=== PATIENT | male | born 1980 | race Caucasian/White ===

== ENCOUNTER 2023-04-11 08:11 | Emergency (ER) | payer OTHER, SELFPAY ==
--- NOTE | ~2023-04-11 | XR_ITS ---
EXAMINATION: XR foot RT min 3V DATE: 04/11/2023 08:31 INDICATION: Right midfoot pain post blunt trauma injury TECHNIQUE: Dorsoplantar, two oblique and lateral views of the right foot were obtained. COMPARISON: None. FINDINGS: Chopart joint injury with fracture at the distal dorsolateral aspect of the medial cuneiform with rogelio roximately 1.5 cm plantar/medial displacement, approaching dislocation, of the majority of the medial cuneiform relative to both the base of the first metatarsal and the smaller fragment which appears t o remain in relatively normal alignment relative to the first metatarsal. There appears to be similar plantar/radial displacement of the majority of the middle cuneiform as well as demonstration indisti nct distal cortical margin suggesting an additional fracture. No subluxation at the naviculocuneiform articulation although the medial and mid cuneiforms and to lesser degree the navicula are angulated as with plantar flexion relative to the axis of the proximal calcaneus and more distal metatarsals. T he third-fifth tarsal metatarsal joints. Remain in normal alignment. No other fractures identified. N ormal variant type II os naviculare. Remaining joint spaces appear normal. IMPRESSION: 1. Chopart joint injury with fracture subluxation bordering on dislocation at the first and second ta rsal metatarsal joints. Reviewed, dictated and finalized at location A. IMPRESSION: 1. Chopart joint injury with fracture subluxation bordering on dislocation at t he first and second tarsal metatarsal joints.
[2023-04-11 08:11] VITALS: BP 180/98; PULSE 76; RESP 18; TEMP 36.3; O2SAT 100
[2023-04-11 08:21] VITALS: BP 180/98; PULSE 75; RESP 20; O2SAT 100
[2023-04-11] MEDS: KETOROLAC (*BKC) 60 MG/2 ML VIAL IM (09:01)
--- NOTE | 2023-04-11 09:06 | ED.LOWEXIN ---
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 The patient has a pain level about a 6/10, and has a brisk pedal pulse on the right with currently no numbness or tingling, with no other injuries. no open fracture no evidence of compartment syndrome, spoke to Orthopedics at the [facility] to a Dr. Swift which suggested splint and call the office for follow-up. MD complaint: foot injury Onset (ago): hour(s) Injury: Right: foot ( tender with palpation) Type of Injury: blunt Exacerbating factors: weight bearing, movement and palpation Context: direct blow Related Data Allergies Allergy/AdvReac Type Severity Reaction Status Date / Time No Known Allergies Allergy Verified 04/11/23 09:18 Review of Systems Review of Systems: All systems reviewed & are unremarkable except as noted in HPI and below PMFSH Past Medical History Medical History Patient denies medical problems Exam Const: General: healthy appearing Nutritional Appearance: well nourished Orientation/consciousness: patient oriented x3 Limitations: no limitations Neck: Neck: normal visual inspection Chest: Chest palpation & inspection: normal inspection of the chest Resp: Effort & Inspection: normal respiratory effort Auscultation: clear to auscultation bilaterally Cardio: Rate: regular rate Rhythm: regular rhythm GI: GI Palp: Yes Soft to palpation Skin: General skin exam: normal color Rashes: no rashes Neuro: General: patient oriented x3, moves all extremities and no meningeal signs Extrem: Other: tenderness anterior right foot with a brisk pedal pulse on the right appears swollen Psych: Mental Status: mental status grossly normal Affect: normal affect Course Course Emergency Course: patient received 60mg IM Toradol and x-ray performed and reviewed shows that he has Chopartinjury with fracture. consulted with Orthopedics Vital Signs Vital signs: Vital Signs Temperature 36.3 C L 04/11/23 08:11 Pulse Rate 76 04/11/23 08:11 Respiratory Rate 18 04/11/23 08:11 Blood Pressure 180/98 H 04/11/23 08:11 Pulse Oximetry 100 04/11/23 08:11 Oxygen Delivery Room Air 04/11/23 08:11 Temperature 36.3 C L 04/11/23 08:11 Pulse Rate 75 04/11/23 08:21 Respiratory Rate 20 04/11/23 08:21 Blood Pressure 180/98 H 04/11/23 08:21 Pulse Oximetry 100 04/11/23 08:21 Oxygen Delivery Room Air 04/11/23 08:21 Critical Care Time Critical Care Time Critical Care Time: No Discharge Plan Discharge Clinical Impression: Foot fracture, right Patient Disposition: Home, Self-Care Condition: Stable Instructions: Antibiotic Form, Foot Fracture in Adults (ED) Additional Instructions: Advised take medicine as prescribed and to call Orthopedic Clinic in [facility] to make an appointment for further evaluation. Prescriptions: New oxycodone-acetaminophen [Percocet] 5-325 mg tablet 1 tablet PO Q6H PRN (Reason: pain) Qty: 20 0RF Follow-up/Referrals: UNKNOWN,DOCTOR [Primary Care Provider] - Time of Disposition: 09:52
[2023-04-11] MEDS: MORPHINE SULFATE (*CRX) 4 MG/ML INJ IM (09:32)
--- NOTE | 2023-04-11 10:05 | PC.NURSE ---
OCL applied to right lower extremity, CMS intact. Education provided to patient.
[2023-04-11 10:19] VITALS: BP 143/82; PULSE 68; RESP 20; O2SAT 96
[2023-04-11 10:40] VITALS: RESP 20
== END 2023-04-11 10:39 | disposition home or self-care (01) ==
PROVIDERS: Emergency Provider Emergency Medicine
DX: S92.311A Displaced fracture of first metatarsal bone, right foot, initial encounter for closed fracture (principal); S92.321A Displaced fracture of second metatarsal bone, right foot, initial encounter for closed fracture; W24.0XXA Contact with lifting devices, not elsewhere classified, initial encounter; Y99.0 Civilian activity done for income or pay
CPT/HCPCS: 29515; 73630; 96372; 99284; J1885; J2270

== ENCOUNTER 2023-04-14 13:51 | Emergency (ER) | payer SELFPAY ==
[2023-04-14 13:52] VITALS: BP 144/86; PULSE 101; RESP 20; TEMP 36.8; O2SAT 100
--- NOTE | 2023-04-14 14:35 | ED.LOWEXIN ---
HPI - Extremity Injury (Lower) General Chief Complaint: Extremity Injury, Lower Stated Complaint: R FOOT INJURY Time Seen by Provider: 04/14/23 13:54 Source: patient Mode of arrival: ambulatory Limitations: no limitations History of Present Illness HPI Narrative: patient is a 42-year-old male with a right foot fracture known. Patient has already been seen in the ER and further seen an orthopedic surgeon. There was plans to have surgery this week but he does not like the doctor. A new doctor information will be given today for another evaluation per the patient request. Also the boot fitting was not feeling correct to the patient so we will change his boot today as well for better fitting. Patient is out of his pain medicine a Percocet and we will discuss that further down the visit. MD complaint: foot injury (right) Onset (ago): day(s) (4) Injury: Right: foot Type of Injury: blunt Place: work Severity: moderate Severity scale (1-10): 8 Relieving factors: immobilization and other ( Percocet) Exacerbating factors: weight bearing, movement and palpation Context: direct blow Associated symptoms: snap/pop sensation, swelling and unable to bear weight ( patient currently using a boot and crutches) Other symptoms: none Treatments prior to arrival: cold therapy Related Data Allergies Allergy/AdvReac Type Severity Reaction Status Date / Time No Known Allergies Allergy Verified 04/11/23 09:18 Review of Systems Review of Systems: All systems reviewed & are unremarkable except as noted in HPI and below Constitutional: Constitutional: Reports no additional constitutional complaints Eyes: Eyes: Reports no additional eye complaints ENT: Reports system reviewed and no additional complaints, except as documented Cardiovascular: Cardiovascular: Reports no additional cardiovascular complaints Respiratory: Respiratory: Reports no additional respiratory complaints Gastrointestinal: Gastrointestinal: Reports no additional gastrointestinal complaints Genitourinary: Genitourinary: Reports no additional male genitourinary complaints Musculoskeletal: Musculoskeletal: Reports no additional musculoskeletal complaints Integumentary/Breasts: Skin/Breast: Reports system reviewed and no additional complaints, except as docu Neurologic: Reports system reviewed and no additional complaints, except as documented Psychiatric: Psychiatric: Reports no additional psychiatric complaints Endocrine: Endocrine: Reports no additional endocrine complaints Hematologic/Lymphatic: Hematologic/Lymphatic: Reports no additional hematologic/lymphatic complaints Allergic/Immunologic: Allergic/Immunologic: Reports no additional allergic/immunologic complaints [facility] Past Medical History Medical History (Updated 04/14/23 @ 14:46 by Sahil Oshea MD) Foot fracture Patient denies medical problems Exam Const: General: healthy appearing, no acute distress and alert Resp: Effort & Inspection: normal respiratory effort Auscultation: clear to auscultation bilaterally Cardio: Rate: regular rate Rhythm: regular rhythm Heart sounds: no murmurs GI: Inspection: non-distended GI Palp: Yes Soft to palpation, No Tenderness to palpation present (GI) and No Guarding due to palpation present (GI) Auscultation: normal bowel sounds Skin: General skin exam: normal color Rashes: no rashes Wounds: no wounds Neuro: General: patient oriented x3 Cranial nerves: Yes Nystagmus not present Speech: normal speech Extrem: General: abnormal to inspection, no clubbing, cyanosis or edema and no pedal edema Other: right foot has some tenderness at the site of fracture with slight swelling and bruising all expected findings Psych: Mental Status: mental status grossly normal Affect: normal affect Attitude: cooperative Course Vital Signs Vital signs: Vital Signs Temperature 36.8 C 04/14/23 13:52 Pulse Rate 101 H 04/14/23 13:52 Respiratory Rate
[2023-04-14 14:54] VITALS: BP 136/89; PULSE 78; RESP 20; TEMP 36.6; O2SAT 98
== END 2023-04-14 15:04 | disposition home or self-care (01) ==
PROVIDERS: Emergency Provider Emergency Medicine; PCP Nurse Practitioner Family
DX: S92.901D Unspecified fracture of right foot, subsequent encounter for fracture with routine healing (principal); X58.XXXD Exposure to other specified factors, subsequent encounter
CPT/HCPCS: 99283; L2112

== ENCOUNTER 2023-04-25 01:04 | Day surgery (SDC) | payer OTHER, SELFPAY ==
[2023-04-23 09:45] VITALS: BMI 27.4
--- NOTE | 2023-04-23 10:01 | PC.NURSE ---
Report to the Outpatient Waiting Room, entrance under the green pavilion located off [facility] [facility], at time ___1000____ on date __[id number]____. Planned Procedure Time: 1200___. Time changes happen often and if your time is changed the preop area will call you the afternoon before. - You and your visitor will be asked to self-screen and do not enter if you have any COVID symptoms. - A mask is optional within the hospital at this time. Patients may have clear liquids (water, carbonated beverages, clear teas, apple juice) until 3 hours prior to surgery with a maximum of 20 ounces. - No food from midnight until time of surgery Take the following medications with a SIP of water the morning of surgery: pain pill if needed DO NOT STOP ANY OF YOUR OTHER PRESCRIPTION MEDICATIONS PRIOR TO SURGERY ?EXCEPT THE FOLLOWING Medications to discontinue per physician n/a Date to take last dose Please no make-up, nail spanish, hairspray, perfume, deodorant, or body powder the day of surgery. No jewelry (including any body piercings) or valuables the day of surgery, leave them at home. Please take a shower or bath the night before, or the morning of, surgery with an antibacterial soap. Wear comfortable, loose fitting clothing. - Jewelry must be removed prior to entering the operating room. Rings and piercings that are not removed may be cut off. - The hospital will not accept responsibility for valuables. - Please leave all valuables, including medications, at home the day of surgery. If you are going home after surgery, a licensed parcel post truck driver must drive you home. - NO public transportation without another adult if you receive anesthesia. - We recommend that an adult stay with you for 24 hours following discharge. - We also recommend that you do not drive, make important decision, drink alcoholic beverages, or take any drugs that were not prescribed by your health care provider for at least 24 hours after your discharge time. Follow any additional instructions given to you from your surgeon. If you or anyone in your household have experienced Covid symptoms in the past week, please notify your surgeon or the nurse liaison at the phone number below for possible testing. Telephone instructions given to ___patient: Maynor and asked if any additional questions and then verbalized understanding. Patient advised to call surgeon office or pre surgery nurse liaison [phone] if any additional questions.
[2023-04-25] VITALS (10 sets, daily range): BP systolic 99–139; BP diastolic 56–85; PULSE 64–94; RESP 10–16; TEMP 36–36.5; O2SAT 94–100
--- NOTE | ~2023-04-25 | XR_ITS ---
XR surgery orthopedic Clinical history: ORIF right foot TECHNIQUE: Fluoroscopy used during ORIF right foot with fusion of the midfoot and base of the first and second metatarsals. performed by [Kristopher Desai MD] on 04/25/2023. 1 minutes 30 seconds wi th 3 images captured. FINDINGS: Correlate with procedure note. IMPRESSION: Fluoroscopy used during ORIF right foot with fusion of the midfoot and base of the first and second metatarsals. Reviewed, dictated and finalized at location B.
--- NOTE | 2023-04-25 09:48 | ECG_ITS ---
Measurements Intervals [place] Rate: 67 P: 59 DC: 169 QRS: -53 QRSD: 114 T: 11 QT: 415 QTc: 438 Interpretive Statements SINUS RHYTHM INCOMPLETE RIGHT BUNDLE BRANCH BLOCK LEFT ANTERIOR FASCICULAR BLOCK ST ELEVATION IN DIFFUSE LEADS CONSISTENT WITH INJURY, PERICARDITIS, OR EARLY REPOLARIZATION BASELINE ARTIFACT- V5-V6 ABNORMAL ECG NO PREVIOUS ECG AVAILABLE FOR COMPARISON Electronically Signed On 04-25-2023 11:49:02 CDT by Jef Bro D.O.
[2023-04-25] MEDS: KETOROLAC 15 MG/ML VIAL (*BKC) IV PUSH (10:45)
[2023-04-25 10:53] LABS: Anion Gap 6 mmol/L (8-16); Blood Urea Nitrogen 19 mg/dL (9-20); Calcium 8.7 mg/dL (8.4-10.2); Carbon Dioxide 26 mmol/L (22-30); Chloride 104 mmol/L (98-107); Estimated CRCL calculation 112 ml/min; Estimated Glomerular Filt Rate > 60; Glucose 196 mg/dL (65-110); Potassium 4.3 mmol/L (3.4-5.0); Sodium 136 mmol/L (137-145)
--- NOTE | 2023-04-25 11:00 | WPDANESEPPF ---
Anes - Initial Pre Proc Eval Procedure: Operation Date: 04/25/23 12:00 Proposed Procedures p Open Reduction Internal Fixation Right Foot Fractures - Kristopher Desai MD Date/Time: 04/25/23 11:00 Surgeon: Kristopher Desai MD Pre Op Diagnosis: right foot karley hernández Patient Data Age: 42 Gender: M Height: 1.71 m Weight: 76.3 kg Last Vital Signs Temp 36.0 C L 04/25/23 10:25 Pulse 64 04/25/23 10:25 Resp 16 04/25/23 10:25 BP 111/68 04/25/23 10:25 Pulse Ox 99 04/25/23 10:25 O2 Del Method Room Air 04/25/23 10:25 Allergies Allergy/AdvReac Type Severity Reaction Status Date / Time No Known Allergies Allergy Verified 04/25/23 10:15 Home Medications Medication Instructions Recorded Confirmed Type dapagliflozin propanediol 10 mg 10 mg PO DAILY 04/23/23 04/24/23 History tablet (Farxiga) ibuprofen 800 mg tablet 800 mg PO Q8H PRN pain #60 tabs 04/24/23 04/24/23 Rx ondansetron 8 mg disintegrating 8 mg PO Q6-8H PRN nausea and 04/24/23 04/24/23 Rx tablet vomiting #10 tabs oxycodone-acetaminophen 7.5 mg-325 1 tablet PO Q6H PRN pain #30 tabs 04/24/23 04/25/23 Rx mg tablet (Percocet) polyethylene glycol 3350 17 17 g PO DAILY PRN constipation 04/24/23 04/24/23 Rx gram/dose oral powder #238 grams sennosides 8.6 mg-docusate sodium 1 tab-cap PO BID #30 tabs 04/24/23 04/24/23 Rx 50 mg tablet Laboratory Tests 04/25/23 10:37 Sodium 136 L mmol/L (137-145) Potassium 4.3 mmol/L (3.4-5.0) Chloride 104 mmol/L (98-107) Carbon Dioxide 26 mmol/L (22-30) Anion Gap 6 L mmol/L (8-16) BUN 19 mg/dL (9-20) Creatinine 0.70 mg/dL (0.7-1.3) Estim Creat Clear Calc 112 ml/min Estimated GFR > 60 (59 - ) Glucose 196 H mg/dL (65-110) Calcium 8.7 mg/dL (8.4-10.2) Patient hx anesthesia problems: none Family hx anesthesia problems: none Results Review: All pre-operative results and documents have been reviewed as part of the pre-operative evaluation. [facility] Past Medical History Medical History Dislocation of foot, right, closed Foot fracture Lisfranc fracture Patient denies medical problems Social History Social History Smoking status: Never smoker Alcohol intake: current Drinks per week: 4 Alcohol use details: sporadic, but I drink 6-7 when I drink Substance use: current Substance use type: marijuana Living arrangements: with family Spiritual care concerns: No Anes - Eval Final PreProcedure Day of Procedure 04/25/23 11:00 Patient weight: overweight Heart: regular rate and rhythm Lungs: clear to auscultation Airway: Mallampati scale class II Neurological: alert and oriented Last oral intake: >/= 8 hours ASA classification: III Emergent: no Anesthetic plan: proceed Anesthesia type and monitoring: general LMA and standard monitoring Results Review: All pre-operative results and documents have been reviewed as part of the pre-operative evaluation. Informed Consent: The patient's anesthetic plan and its attendant risks and benefits were discussed with the patient/family/POA. Questions were solicited and answers provided to the satisfaction of the patient/family/POA.
--- NOTE | 2023-04-25 12:00 | WPDHPUPDATE1 ---
History and Physical Update Update Date/Time: 04/25/23 12:00 History and Physical has been reviewed, including an updated exam of the patient. There are NO changes in the patient's condition. Risks, benefits, and alternatives have been discussed and questions answered. Patient agrees to proceed with procedure.
[2023-04-25] MEDS: ceFAZolin 2 GM/D5W 50 ML 2 GM/50 ML BAG IVPB (12:05)
[2023-04-25] MEDS: BUPivacaine HCL 0.5% PF 30 ML VIAL 10 ML INFILTRATE (12:37)
[2023-04-25] MEDS: LACTATED RINGERS 1,000 ML 30 ML IV CONT ×2 (14:24)
--- NOTE | 2023-04-25 14:28 | W.PM.PROC2 ---
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 Fracture dislocation of the Lisfranc joint. Presents for operative treatment. Description of Procedure Patient identified in the preoperative holding. Informed consent given. Operative extremity marked. Patient received intravenous antibiotics. Patient brought to the operating room where underwent general anesthetic by anesthesia team. Positioned supine on operating room table. Time-out performed confirming the patient, site of the surgery and the plan. Right foot prepped draped sterile surgical fashion using DuraPrep skin solution. Foot and Ankle exsanguinated and thigh tourniquet inflated to 250 mmHg. Local anesthetic with 0.5% Marcaine plain. Dorsal longitudinal incision made over the dorsum the 1st intermetatarsal space inter cuneiform space. Hemostasis controlled electrocautery. The neurovascular bundle as well as tendons were identified and protected. Dorsal capsulotomy performed 1st metatarsal medial cuneiform joint. Complete dislocation of cuneiform as well as fracture was noted. Portion of the articular surface from the metatarsal and the cuneiform was noted to have traumatically sheared off and was sitting free. Due to this primary arthrodesis was indicated. Wrist the articular surface was removed osteotome and rongeur. Articular surface and subchondral bone was feathered. The neurovascular bundle was then protected and a dorsal capsulotomy was performed 2nd metatarsal cuneiform joint. Similarly joint was prepared by removing articular surface osteotome and rongeur and feather in the surfaces. The Lisfranc complex was then reduced. This was checked with image intensification. Fixation was then achieved with the cannulated screws placed in lag technique. Final stabilization performed with a dorsal 5 hole plate. Image intensification confirm final alignment placement of the hardware. Wounds were irrigated with saline and the fascia was then closed with 2-0 Vicryl interrupted suture. Subcutaneous tissue repaired with 3-0 Monocryl interrupted suture and skin repaired with 4-0 nylon running suture. Tourniquet released and good capillary refill noted in the toes. Sterile dressing applied. The patient was then woken from anesthesia, extubated and taken to the recovery room in stable condition. All sponge, needle, instrument counts were correct at the end of the case. Implants Arthrex 3.5 mm cannulated screw X 3, 5 hole plate with 3.5 mm cannulated screw x4 screws, 2.5 mm cannulated screw Estimated Blood Loss 20 Tourniquet Time 90 Drains No Packing No Pathology None sent Complications None Condition Stable Disposition PACU [facility] Billing Surgery - Charge Forward: Surgery Billing ([id number])
[2023-04-25 14:32] LABS: Glucose Point of Care 193 mg/dl (65-105)
[2023-04-25] MEDS: fentaNYL CITRATE INJ (*CRX) 100 MCG/2 ML VIAL 25 MCG IV PUSH ×8 (15:05→15:19)
[2023-04-25] MEDS: oxyCODONE HCL (*CRX) 5 MG TAB IR PO (16:27)
== END 2023-04-25 16:40 | disposition home or self-care (01) ==
PROVIDERS: Anesthesiology; PCP Family Medicine; Visit Provider Orthopaedic Surgery
PROC: (CPT 28485; principal; 2023-04-25 12:00)
DX: S93.324A Dislocation of tarsometatarsal joint of right foot, initial encounter (principal); W20.8XXA Other cause of strike by thrown, projected or falling object, initial encounter; Y92.9 Unspecified place or not applicable; Y99.0 Civilian activity done for income or pay; Z79.84 Long term (current) use of oral hypoglycemic drugs; F12.90 Cannabis use, unspecified, uncomplicated
CPT/HCPCS: 28465; 28615 ×2; 36415; 80048; 82948; 93005; 99199; A9270; J0690; J1100; J1170; J1885; J2250; J2405; J2704; J3010; J7120

== ENCOUNTER 2023-07-15 09:16 | Outpatient (CLI) | payer OTHER, SELFPAY ==
--- NOTE | ~2023-07-15 | XR_ITS ---
Right foot Technique: AP, oblique, and lateral views were obtained. Clinical History: Postoperative COMPARISON: 06/12/2023 Findings: There is extensive orthopedic hardware involving the first and second tarsometatarsal joint s and the Lisfranc ligament region. Osseous and orthopedic hardware alignment is stable, with probabl e mild progressive fusion across the second TMT joint. No hardware complication is evident. There is dorsal soft tissue swelling of the forefoot.. Impression: Osseous and orthopedic hardware alignment is unchanged with fusion at the first and second tarsometat arsal joints, as detailed above. Increased dorsal soft tissue swelling the foot, nonspecific. Correlate clinically. Reviewed, dictated and finalized at location M. 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 Increased dorsal soft tissue swelling the foot, nonspecific. Correlate clinical ly.
== END 2023-07-15 09:17 | disposition home or self-care (01) ==
LOC: CHSIMG 09:17
PROVIDERS: PCP Family Medicine; Visit Provider Orthopaedic Surgery
DX: M79.671 Pain in right foot (principal); M79.89 Other specified soft tissue disorders
CPT/HCPCS: 73630

== ENCOUNTER 2023-10-21 09:31 | Outpatient (CLI) | payer OTHER, SELFPAY ==
--- NOTE | ~2023-10-21 | XR_ITS ---
EXAMINATION: XR foot RT min 3V DATE: 10/21/2023 09:56 INDICATION: Right foot pain. TECHNIQUE: 3 views of right foot were obtained. COMPARISON: Right foot radiographs 07/15/2023 FINDINGS: There is lateral subluxation of second metatarsal with respect to intermediate cuneiform. T here are changes of fusion procedure involving the first and second metatarsals and medial and interm ediate cuneiforms with multiple screws. There is a dorsal plate at first tarsometatarsal joint. No ac juan fracture. There is mild osteoarthritis of first metatarsophalangeal joint and some of the interph alangeal and midfoot joints. IMPRESSION: 1. Fusion procedure involving the first and second metatarsals and medial and intermediate cuneiforms . 2. Mild polyarticular osteoarthritis. Reviewed, dictated and finalized at location A. IMPRESSION: 1. Fusion procedure involving the first and second metatarsals and medial and i ntermediate cuneiforms. 2. Mild polyarticular osteoarthritis.
== END 2023-10-21 09:32 | disposition home or self-care (01) ==
LOC: CHSIMG 09:33
PROVIDERS: PCP Family Medicine; Visit Provider Orthopaedic Surgery
DX: M79.671 Pain in right foot (principal); Z98.890 Other specified postprocedural states; M19.071 Primary osteoarthritis, right ankle and foot
CPT/HCPCS: 73630

== ENCOUNTER 2024-03-23 07:29 | Outpatient (CLI) | payer OTHER, SELFPAY ==
--- NOTE | ~2024-03-23 | XR_ITS ---
XR foot RT min 3V Ordering provider: Kristopher Desai MD History: . MID FOOT PAIN CHORNIC S/P SURGERY . Comparison: October 21, 2023 FINDINGS: BONES: Small bony fragment seen on the plantar aspect of the foot as seen in the lateral view which w as not seen in the previous study. Postoperative changes in the area of the first and second tarsomet atarsal joints. JOINT SPACES: Osteoarthritic changes seen on the dorsum of the fourth in the area of the tarsometatar clifford joints as seen in the lateral view.. No tarsal coalition. SOFT TISSUES: Normal. IMPRESSION: Small bony fragment seen in the plantar aspect of the foot most likely adjacent to the cuboid bone an d suggestive of acute/subacute fracture. Clinical correlation for tenderness in the area advised.. Reviewed, dictated and finalized at location A. IMPRESSION: Small bony fragment seen in the plantar aspect of the foot most likely adjacent to the cuboid bone and suggestive of acute/subacute fracture. Clinical correla tion for tenderness in the area advised..
== END 2024-03-23 07:30 | disposition home or self-care (01) ==
LOC: CHSIMG 07:30
PROVIDERS: PCP Family Medicine; Visit Provider Orthopaedic Surgery
DX: M79.671 Pain in right foot (principal); R93.7 Abnormal findings on diagnostic imaging of other parts of musculoskeletal system
CPT/HCPCS: 73630

== ENCOUNTER 2024-10-14 09:23 | Outpatient (CLI) | payer MEDICAID, SELFPAY ==
[2024-10-14 09:50] LABS: Basophils Absolute Auto 0.03 K/mm3 (0.00-0.10); Basophils Percent Auto 0.4 % (0.0-1.0); Eosinophils Percent Auto 1.4 % (1.0-6.0); Hematocrit 42.8 % (40.0-54.0); Hemoglobin 14.9 g/dL (14.0-18.0); Immature Granulocyte Absolute 0.02 K/mm3 (0.00-0.00); Immature Granulocyte Percent A 0.3 % (0.0-0.0); Lymphocytes Absolute Auto 1.31 K/mm3 (1.10-4.50); Lymphocytes Percent Auto 17.9 % (18.0-42.0); Mean Corpuscular HGB Conc 34.8 g/dL (32-36); Mean Corpuscular Volume 83.4 fL (78.0-102.0); Mean Platelet Volume 10.9 fl (8.7-11.0); Monocytes Absolute Auto 0.73 K/mm3 (0.10-0.90); Neutrophils Absolute Auto 5.12 K/mm3 (1.70-7.20); Platelet Count Result 183 K/mm3 (150-420); Red Blood Count 5.13 M/mm3 (4.70-6.10); Red Cell Distribution Width 12.5 % (11.6-14.4); White Blood Count 7.3 K/mm3 (4.8-10.8)
--- OUTSIDE RECORDS SUMMARY | 2024-10-14 10:08 | XMS_ITS | Encounter Summary ---
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
--- OUTSIDE RECORDS SUMMARY | 2024-10-14 10:08 | XMS_ITS | Clinical Summary ---
Author Organization [facility] Address [facility] [place] [address] Care Team Providers Care Business Reporter Name Role Phone None, Provider MD Primary Care Provider Unavaila ble Allergies No known active allergies Medications No known medications Active Problems Problem Noted Date Diagnosed Date Foot fracture, right, with r outine healing, subsequent encounter 08/08/2023 Family History Medical History Relation Comments Cancer Father Heart Disease Mother Osteoarthritis Mother Relation Status Comments Father Alive Mother Alive Social History Tobacco Use Types Packs/Day Years Used Date Smoking Tobacco: Never Smokeless Tobacco: Never Tobacco Cessation:Counseling Given: Not Answered Alcohol Use Standard Drinks/Week Comments Yes 0 (1 standard drink = 0.6 oz pur e alcohol) occasional Sex and Gender Information Value Date Recorded Sex Assigned at Not on file 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 Gender Identity Not on file Sexual Orientation Not on file Last Filed Vital Signs Vital Sign Reading Time Taken Comments Blood Pressure 135/93 12/19/2022 8:24 PM CDT Pulse 119 12/19/2022 8:24 PM CDT Temperature 35.1 C (95.2 F) 12/19/2022 8:24 PM CDT Respiratory Rate 16 12/19/2022 8:24 PM CDT Oxygen Saturation 95% 12/19/2022 8:30 PM CDT Inhaled Oxygen Concentration - - Weight 83.9 kg (185 lb) 12/19/2022 8:24 PM CDT Height 170.2 cm (5' 7 ) 12/19/2022 8:24 PM CDT Body Mass Index 28.98 12/19/2022 8:24 PM CDT Plan of Treatment Health Maintenance Due Date Last Done Comments Annual Physical 12/27/1982 Hepatitis C 12/27/1997 DTaP, Tdap and Td Vaccines ( 1 - Tdap) 12/27/1998 Hepatitis B Vaccines (1 of 3 - 19+ 3-dose series) 12/27/1998 COVID-19 Vaccine ( - 2023-2 5 season) 2024 Influenza Adult (#1) 2024 HPV Vaccines Aged Out No longer eligi ble based on patient's age to complete this topic Meningococcal B Vaccine Aged Out No l onger eligible based on patient's age to complete this topic Meningococcal Vaccine Aged Out No pk gali eligible based on patient's age to complete this topic Pneumococcal Vaccine: Pediat rics (0 to 5 Years) and At-Risk Patients (6 to 64 Years) Aged Out No longer eligible b ased on patient's age to complete this topic RSV Immunizations Under 20 Months Aged Out No longer eligible based on patient's age to complete this topic Insurance MEDICAID [facility] Care Teams Business Reporter Relationship Specialty Start Date End Date None, Provider, PCP - General 04/07/21
[2024-10-14 10:11] LABS: Alanine Aminotransferase 104 U/L (16-63); Albumin Level 3.9 g/dL (3.4-5.0); Alkaline Phosphatase 158 U/L (46-116); Anion Gap 7 mmol/L (4-12); Aspartate Amino Transferase 29 U/L (15-37); Bilirubin,Total 0.4 mg/dL (0.00-1.00); Blood Urea Nitrogen 18 mg/dL (7-18); Calcium 9.7 mg/dL (8.5-10.1); Carbon Dioxide 29 mmol/L (21-32); Chloride 100 mmol/L (98-108); Cholesterol 333 mg/dL (0-200); Estimated Glomerular Filt Rate > 60; Glucose 344 mg/dL (70-99); HDL Direct 41 mg/dL (40-60); LDL Cholesterol Calculated 219 mg/dL (<130); Osmolality Calculated 297 mOsm/kg (285-295); Potassium 4.6 mmol/L (3.5-5.1); Sodium 136 mmol/L (136-145); Total Protein 7.2 g/dL (6.4-8.2); Triglycerides 363 mg/dL (0-150)
[2024-10-14 10:24] LABS: HIV 1 P24 AG Negative (Negative); HIV 1/2 AB Negative (Negative)
[2024-10-15 09:04] LABS: Hepatitis B Surface Antigen NON-REACTIVE (NON-REACTIVE)
[2024-10-15 11:59] LABS: Hepatitis A Antibody IgM NON-REACTIVE (NON-REACTIVE); Hepatitis B Core Antibody NON-REACTIVE (NON-REACTIVE); Hepatitis C Virus Antibody NON-REACTIVE (NON-REACTIVE)
== END 2024-10-14 09:24 | disposition home or self-care (01) ==
PROVIDERS: PCP Family Medicine; Visit Provider Family Medicine
DX: E11.42 Type 2 diabetes mellitus with diabetic polyneuropathy (principal); K62.5 Hemorrhage of anus and rectum; R74.01 Elevation of levels of liver transaminase levels
CPT/HCPCS: 36415; 80053; 80061; 80074; 84402; 84403; 85025; 87806

== ENCOUNTER 2025-04-26 07:32 | Outpatient (CLI) | payer OTHER, SELFPAY ==
--- NOTE | ~2025-04-26 | XR_ITS ---
X-rays right foot Indication: Pain, M 79.671 Comparison: 1 month prior Technique: 4 views right foot Findings/Impression: 1. Arthrodesis of medial and middle cuneiforms with first and second metatarsals. Lucency around screw within second metatarsal head as before. Hardware intact. 2. No definite acute findings or significant change. 3. Cortical irregularity along medial navicular as before. Reviewed, dictated and finalized at location R.
== END 2025-04-26 07:33 | disposition home or self-care (01) ==
LOC: CHSIMG 07:34
PROVIDERS: PCP Family Medicine; Visit Provider Family Medicine
DX: M79.671 Pain in right foot (principal); Z98.1 Arthrodesis status
CPT/HCPCS: 73630

== ENCOUNTER 2025-06-13 22:18 | Emergency (ER) | payer SELFPAY ==
--- OUTSIDE RECORDS SUMMARY | 1999-06-20 08:30 | XMS_ITS | Continuity of Care Document ---
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, [address], [place], [place], [id number], [place] tel:[phone], [facility] 2001 No Information [id number] No Information Family History Family Member Type Diagnosis Age At Onset No Information Payers Payer name Insurance type Covered constitution party ID Authoriza tijudson(s) Workers Compensation [id number] Social History Type Description Quantity Date Captured Comments Sex Male Smoking Status No Information Chief Complaint And Reason For Visit No Information Reason For Referral Reason For Referral No Information History Of Present Illness Encounter Date Complaint History Of Prese nt Illness No Information Functional Status Date Functional Assessmen t No Information Instructions Date Instruction Additional Infor mation No Information Assessments Type Assessment Date No Information Patient Care Teams Name Effective Dates (start - stop) Status Members No Information
[2025-06-13 22:23] VITALS: BP 156/88; PULSE 92; RESP 15; TEMP 36.8; O2SAT 95
--- NOTE | 2025-06-13 22:44 | ED_ITS ---
HPI - Animal Bite General Chief Complaint: Animal Bite Stated Complaint: Animal bite on Finger Time Seen by Provider: 06/13/25 22:44 Source: patient Mode of arrival: ambulatory Limitations: no limitations History of Present Illness HPI narrative: Patient is a 44-year-old male with a left hand pointer finger cat bite 2 days ago. The area is red and inflamed with some pus today so he came for evaluation at this time. Patient picked up his cat and was moving the animal when it turned around and bit him in the finger. The cat was upset about being lifted and turned around and bit him in the finger. The animal has shots up-to-date. The patient had a tetanus in the past few years. MD complaint: animal bite Onset (ago): day(s) (Two) Animal: cat Description of animal: household pet, immunizations UTD and appeared well Mechanism: bite and contact with mucous membranes Location - Extremities: Left: hand (Pointer finger) Pain description: sharp Severity scale (1-10): 4 Context: provoked and other (Patient was picking up the cat and it turned around and bit him in the finger) Associated symptoms: erythema, discharge from wound and rash Treatments prior to arrival: wound dressing(s) Related Data Patient tetanus UTD: Yes Allergies Allergy/AdvReac Type Severity Reaction Status Date / Time No Known Allergies Allergy Verified 06/13/25 22:23 Review of Systems Review of Systems: All systems reviewed & are unremarkable except as noted in HPI and below Constitutional: Constitutional: Reports no additional constitutional com plaints Eyes: Eyes: Reports no additional eye complaints ENT: Reports system reviewed and no additional complaints, except as documented Cardiovascular: Cardiovascular: Reports no additional cardiovascular complaints Respiratory: Respiratory: Reports no additional respiratory complaints Gastrointestinal: Gastrointestinal: Reports no additional gastrointestinal complaints Genitourinary: Genitourinary: Reports no additional male genitourinary complaints Musculoskeletal: Musculoskeletal: Reports no additional musculoskeletal complaints Integumentary/Breasts: Skin/Breast: Reports system reviewed and no additional complaints, except as docu Neurologic: Reports system reviewed and no additional complaints, except as documented Psychiatric: Psychiatric: Reports no additional psychiatric complaints Endocrine: Endocrine: Reports no additional endocrine complaints Hematologic/Lymphatic: Hematologic/Lymphatic: Reports no additional hematologic/lymphatic complaints Allergic/Immunologic: Allergic/Immunologic: Reports no additional allergic/immunologic complaints [facility] Past Medical History Medical History Hyperlipidemia Type II diabetes mellitus Encounter for postoperative care Dislocation of foot, right, closed Lisfranc fracture Foot fracture Patient denies medical problems Social History Social History Smoking status: Former smoker Alcohol intake: former Drinks per week: 4 Alcohol use details: sporadic, but I drink 6-7 when I drink Substance use: current Substance use type: marijuana Other substance usage details: daily Living arrangements: with family Spiritual care concerns: No Exam Const: General: healthy appearing Nutritional Appearance: well nourished Orientation/consciousness: patient oriented x3 HENMT: Head: normal to inspection Ears: external ears normal Face/Nose/Sinus: Normal external nose present Eyes: Conjunctivae: conjunctivae normal Pupils: Equal, round and reactive pupils present EOM: EOMs intact bilaterally Neck: Neck: normal visual inspection Chest: Chest palpation & inspection: normal inspection of the chest Resp: Effort & Inspection: normal respiratory effort, not labored, no retractions and not tachypneic Auscultation: clear to auscultation bilaterally, no crackles, no rales and no rhonchi Cardio: Rate: regular rate Rhythm: regular rhythm Heart sounds: no murmurs GI: Inspection: non-distended GI Palp: Yes Soft to palpation, No Tenderness to palpation present (GI) and No Guarding due to palpation present (GI) Auscultation: normal bowel sounds : General: Yes bladder normal to palpation Back/Spine/Pelvis: Back: no CVA tenderness Skin: General skin exam: normal color Rashes: no rashes Wounds: wound noted Other: Left hand pointer finger has a small area of infection and it has erythema with a small nidus opening and localized pus drainage Neuro: General: patient oriented x3, moves all extremities and no meningeal signs Cranial nerves: No Nystagmus not present Speech: No normal speech Gait exam (Neuro): gait abnormal Extrem: General: normal to inspection, no clubbing, cyanosis or edema and no pedal edema Psych: Mental Status: mental status grossly normal Affect: normal affect Attitude: cooperative Course Vital Signs Vital signs: Vital Signs Temperature 36.8 C 06/13/25 22:23 Pulse Rate 92 06/13/25 22:23 Respiratory Rate 15 06/13/25 22:23 Blood Pressure 156/88 H 06/13/25 22:23 Pulse Oximetry 95 06/13/25 22:23 Oxygen Delivery Room Air 06/13/25 22:23 Temperature 36.8 C 06/13/25 22:23 Pulse Rate 92 06/13/25 22:23 Respiratory Rate 15 06/13/25 22:23 Blood Pressure 156/88 H 06/13/25 22:23 Pulse Oximetry 95 06/13/25 22:23 Oxygen Delivery Room Air 06/13/25 22:23 MDM - Animal Bite MDM Narrative Medical decision making narrative: Patient is a 44-year-old male with a left hand pointer finger cat bite 2 days ago. Area is now red and swollen and painful. Augmentin times 10 days. Tetanus up-to-date. Off work. Imaging Data Attestation: I personally reviewed and interpreted this imaging study as follows: Discharge Plan Discharge Clinical Impression: Cat bite of finger Patient Disposition: Home Condition: Stable Instructions: Antibiotic Form, Animal Bite (ED) Patient Language: Nigerien Prescriptions: New amoxicillin-pot clavulanate 875-125 mg tablet 1 tablet PO BID 10 Days Qty: 20 0RF No Action metformin 500 mg tablet 500 mg PO BID Qty: 180 3RF atorvastatin 40 mg tablet See Rx Instructions .ROUTE .COMPLEX Qty: 90 2RF Dose Instruction: TAKE ONE TABLET BY MOUTH DAILY Rx Instructions: TAKE ONE TABLET BY MOUTH DAILY amoxicillin 875 mg tablet 875 mg PO ONCE PRN (Reason: Dental procedure) Qty: 10 0RF Rx Instructions: Take 1 tab 1-2 hours prior to dental procedures Follow-up/Referrals: Mahesh Enriquez DO [Primary Care Provider, Family Practice] Stand Alone Forms: Work/School Release IP Time of Disposition: 23:03
[2025-06-13 23:25] VITALS: BP 135/89; PULSE 89; RESP 16; TEMP 36.9; O2SAT 98
== END 2025-06-13 23:25 | disposition home or self-care (01) ==
PROVIDERS: Emergency Provider Emergency Medicine; PCP Family Medicine
DX: S61.251A Open bite of left index finger without damage to nail, initial encounter (principal); E11.9 Type 2 diabetes mellitus without complications; E78.5 Hyperlipidemia, unspecified; Z87.891 Personal history of nicotine dependence; W55.01XA Bitten by cat, initial encounter
CPT/HCPCS: 99283; A9270

== ENCOUNTER 2025-07-09 03:28 | Emergency (ER) | payer SELFPAY ==
[2025-07-09 03:28] VITALS: BP 161/117; PULSE 116; RESP 20; TEMP 36.8; O2SAT 98
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
[2025-07-09] MEDS: LIDOCAINE 1% LOCAL INJ 10 ML VIAL INFILTRATE (03:50)
[2025-07-09 04:20] VITALS: BP 138/70; PULSE 72; RESP 20; O2SAT 98
== END 2025-07-09 04:20 | disposition home or self-care (01) ==
PROVIDERS: Emergency Provider Family Medicine; PCP Family Medicine
DX: S01.511A Laceration without foreign body of lip, initial encounter (principal); E11.9 Type 2 diabetes mellitus without complications; E78.5 Hyperlipidemia, unspecified; Z87.891 Personal history of nicotine dependence; W17.89XA Other fall from one level to another, initial encounter
CPT/HCPCS: 12011; 99282; J2003